=== PATIENT | female | born 1970 | race Caucasian/White ===

== ENCOUNTER → 2017-08-03 | Outpatient (CLI) | payer OTHER ==
--- NOTE | 2017-08-04 08:25 | RAD ---
Indication: Muscle spasm, injury 5 days ago. Decreased range of motion and difficulty ambulating. Technique: Lumbar spine series including oblique views contains 5 images. No comparison is available. Findings: There are 5 lumbar type vertebral bodies. There is no fracture or dislocation. Vertebral body height is maintained. Interspace height is maintained. Endplate spurring is most notable at L2-L3 and greater on the right. There is mild facet hypertrophy. Impression: Mild degenerative changes in the lumbar spine.
== END | disposition home or self-care (01) ==
LOC: RAD 17:18
PROVIDERS: ATTEND General Practice
DX: S39.012A Strain of muscle, fascia and tendon of lower back, initial encounter (principal); M47.896 Other spondylosis, lumbar region; X58.XXXA Exposure to other specified factors, initial encounter; Y93.89 Activity, other specified; Y92.89 Other specified places as the place of occurrence of the external cause; Y99.8 Other external cause status
CPT/HCPCS: 72110

== ENCOUNTER → 2017-08-16 | Outpatient (CLI) | payer OTHER ==
--- NOTE | 2017-08-16 17:23 | RAD ---
DATE: 08/16/2017 EXAM: MAMMO STEWART SCREENING BILATERAL HISTORY: Screening Mammogram COMPARISON: Screening mammogram 10/07/2015 This study was interpreted with the benefit of Computerized Aided Detection (CAD). The breast parenchyma shows scattered fibroglandular densities. Breast parenchyma level B. FINDINGS: Bilateral digital 2-D and 3-D tomosynthesis CC and MLO views. No suspicious mass, calcification or architectural distortion. No significant change from prior examination IMPRESSION: No mammographic evidence of malignancy. Recommend routine screening mammogram in 12 months. BI-RADS CATEGORY: 1 NEGATIVE RECOMMENDED FOLLOW-UP: 12M 12 MONTH FOLLOW-UP PQRS compliance statement: Patient information was entered into a reminder system with a target due date for the next mammogram. Mammography is a sensitive method for finding small breast cancers, but it does not detect them all and is not a substitute for careful clinical examination. A negative mammogram does not negate a clinically suspicious finding and should not result in delay in biopsying a clinically suspicious abnormality. "Our facility is accredited by the [employer] Mammography Program."
== END | disposition home or self-care (01) ==
LOC: MAMMO 14:46
PROVIDERS: ATTEND Physician Assistant Medical
DX: Z12.31 Encounter for screening mammogram for malignant neoplasm of breast (principal)
CPT/HCPCS: 77063; 77067

== ENCOUNTER 2018-03-19 14:45 | Emergency (ER) | payer OTHER ==
[~2018-03-19] VITALS: Ht 162.6 cm; Wt 97.5 kg
[2018-03-19 14:58] VITALS: BP 140/90
[2018-03-19] MEDS ORDERED: ONDANSETRON PF 4 MG/2 ML VIAL. IV ONE (16:00)
[2018-03-19] MEDS ORDERED: HYDROmorphone PF 1 MG/ML DISP.SYRIN IV ONE (16:00)
--- NOTE | 2018-03-19 16:12 | PHYS DOC ---
Past History Past Medical History: Other Past Surgical History: Cholecystectomy, Tubal ligation Adult General Chief Complaint Chief Complaint: BACK PAIN - NO INJURY HPI HPI 47-year-old female presents with low back pain. The patient has had history of back pain with exacerbations that don't seem to have a pattern. She states they can happen when she is sitting in a chair at work and happen while she is walking. Over the last several days, the patient has had increasing stiffness in her low back and then the pain became severe while patient was at rest 2 days ago. She now has pain with even minimal movement. It is becoming difficult to get up and down out of a chair to go to the restroom. She now has sciatic pain going down the lateral part of her right thigh to just above the knee. When she is lying still, the pain is a 5, but it shoots to a 10 with movement. She has tried taking Flexeril but it has not helped. She has not taken other pain medications. The patient has done physical therapy before, but has not had an MRI done. Review of Systems Review of Systems Constitutional: Denies fever or chills [] Eyes: Denies change in visual acuity, redness, or eye pain [] HENT: Denies nasal congestion or sore throat [] Respiratory: Denies cough or shortness of breath [] Cardiovascular: No additional information not addressed in HPI [] GI: Denies abdominal pain, nausea, vomiting, bloody stools or diarrhea [] : Denies dysuria or hematuria [] Musculoskeletal: Low back pain[] Integument: Denies rash or skin lesions [] Neurologic: Denies headache, focal weakness or sensory changes [] Endocrine: Denies polyuria or polydipsia [] All other systems were reviewed and found to be within normal limits, except as documented in this note. Current Medications Current Medications Current Medications Medications (Trade) Dose Ordered Sig/[facility] Start Time Stop Time Status Last Admin Dose Admin Hydromorphone HCl (Dilaudid) 1 mg 1X ONCE 03/19/18 16:00 03/19/18 16:01 UNV Ondansetron HCl (Zofran) 4 mg 1X ONCE 03/19/18 16:00 03/19/18 16:01 UNV Physical Exam Physical Exam Constitutional: Well developed, well nourished, no acute distress, non-toxic appearance. [] HENT: Normocephalic, atraumatic, bilateral external ears normal, oropharynx moist, no oral exudates, nose normal. [] Eyes: PERRLA, EOMI, conjunctiva normal, no discharge. [] Neck: Normal range of motion, no tenderness, supple, no stridor. [] Cardiovascular:Heart rate regular rhythm, no murmur [] Lungs & Thorax: Bilateral breath sounds clear to auscultation [] Abdomen: Bowel sounds normal, soft, no tenderness, no masses, no pulsatile masses. [] Skin: Warm, dry, no erythema, no rash. [] Back: Pain with even minimal movement. Mild tenderness with palpation over L4- L5 in the sacroiliac region. Pain is mostly elicited with flexion and extension. [] Extremities: No tenderness, no cyanosis, no clubbing, ROM intact, no edema. [] Neurologic: Alert and oriented X 3, normal motor function, normal sensory function, no focal deficits noted. [] Psychologic: Affect normal, judgement normal, mood normal. [] Current Patient Data Vital Signs Vital Signs Date Time Temp Pulse Resp B/P (MAP) Pulse Ox O2 Delivery O2 Flow Rate FiO2 03/19/18 14:58 82 96 Room Air EKG EKG [] Radiology/Procedures Radiology/Procedures [] Impressions: LUMBAR SPINE 2-3V INDICATION: lower back pain x 1 week, no known fall or trauma to lower back, hx of lower back pain x 2-3 years COMPARISON: None. FINDINGS: There are 5 nonrib-bearing lumbar-type vertebral bodies. The normal lumbar lordosis is maintained. No listhesis. Vertebral body heights are maintained. No evidence of acute fracture. Mild multilevel degenerative changes of the visualized spine. Cholecystectomy clips. IMPRESSION: 1. No acute lumbar fracture or malalignment. 2. Mild multilevel degenerative changes of the visualized spine. Electronically signed by: Miko Underwood MD (03/19/2018 5:30 PM) [facility] DICTATED AND SIGNED BY: MIKO UNDERWOOD MD DATE: 03/19/181728 CC: TEJINDER SHELTON DO; ELSIE BROWN ~ Course & Med Decision Making Course & Med Decision Making Pertinent Labs and Imaging studies reviewed. (See chart for details) The patient's lumbar x-rays do not show any acute findings. She does have some mild multilevel degeneration, but disc height is preserved. I believe the patient is having reflex spasm is from some irritation in her low back that is not obvious on x-ray. I will treat her for 5 days of steroids. I will also give her Norflex in the ED. for her severe breakthrough pain, I provided a short course of [place] 5/325. She is stable for discharge at this time. [] Dragon Disclaimer Dragon Disclaimer This electronic medical record was generated, in whole or in part, using a voice recognition dictation system. Departure Departure: Referrals: ELSIE BROWN (PCP) Scripts Cyclobenzaprine Hcl (CYCLOBENZAPRINE HCL) 10 Mg Tablet 1 TAB PO TID PRN for MUSCLE SPASMS, #90 TAB Prov: TEJINDER SHELTON DO 03/19/18 Prednisone (PREDNISONE) 50 Mg Tablet 1 TAB PO DAILY, #5 TAB Prov: TEJINDER SHELTON DO 03/19/18 Hydrocodone Bit/Acetaminophen (NORCO 5-325 TABLET) 1 Each Tablet 1 TAB PO PRN Q6HRS PRN for PAIN, #14 TAB 0 Refills Prov: TEJINDER SHELTON DO 03/19/18 TEJINDER SHELTON DO Mar 19, 2018 16:12
[2018-03-19 16:55] LABS: BASO % 0 % (0-3); EOS # 0.1 x10^3/uL (0.0-0.7); EOS % 1 % (0-3); HEMATOCRIT 41.9 % (36.0-47.0); HEMOGLOBIN 14.1 g/dL (12.0-15.5); LYMPH # 1.4 x10^3/uL (1.0-4.8); LYMPH % 11 % (24-48); MEAN CORPUSCULAR HEMOGLOBIN 28 pg (25-35); MEAN CORPUSCULAR HGB CONC 34 g/dL (31-37); MEAN CORPUSCULAR VOLUME 82 fL (79-100); MONO # 0.7 x10^3/uL (0.0-1.1); MONO % 6 % (0-9); NEUT % 83 % (31-73); PLATELET COUNT 262 x10^3/uL (140-400); RED BLOOD COUNT 5.12 x10^6/uL (3.50-5.40); RED CELL DISTRIBUTION WIDTH 14.1 % (11.5-14.5); WHITE BLOOD COUNT 13.2 x10^3/uL (4.0-11.0)
[2018-03-19 17:01] LABS: CALCIUM 9.5 mg/dL (8.5-10.1); GFR 59.2; POTASSIUM 4.1 mmol/L (3.5-5.1)
--- NOTE | 2018-03-19 17:33 | RAD ---
LUMBAR SPINE 2-3V INDICATION: lower back pain x 1 week, no known fall or trauma to lower back, hx of lower back pain x 2-3 years COMPARISON: None. FINDINGS: There are 5 nonrib-bearing lumbar-type vertebral bodies. The normal lumbar lordosis is maintained. No listhesis. Vertebral body heights are maintained. No evidence of acute fracture. Mild multilevel degenerative changes of the visualized spine. Cholecystectomy clips. IMPRESSION: 1. No acute lumbar fracture or malalignment. 2. Mild multilevel degenerative changes of the visualized spine. Electronically signed by: Miko Amos MD (03/19/2018 5:30 PM) [facility]
[2018-03-19] MEDS ORDERED: HYDR-971 PO (17:46)
[2018-03-19] MEDS ORDERED: PRED50TA PO (17:47)
[2018-03-19] MEDS ORDERED: CYCL-331 PO (17:57)
[2018-03-19] MEDS ORDERED: methylPREDNISolone SOD SUCC PF 125 MG/2 ML VIAL. IV ONE (18:00)
[2018-03-19] MEDS ORDERED: ORPHENADRINE CITRATE 60 MG/2 ML VIAL. IV ONE (18:00)
== END 2018-03-19 17:40 | disposition home or self-care (01) ==
LOC: ER 14:45
DX: M47.896 Other spondylosis, lumbar region (principal); M54.5 Low back pain; Z90.49 Acquired absence of other specified parts of digestive tract; Z98.51 Tubal ligation status
CPT/HCPCS: 36415; 72100; 80048; 85025; 96374; 96375; 99285; J1170; J2360; J2405; J2930